=== PATIENT | male | born 1960 | race Caucasian/White ===

== ENCOUNTER 2018-09-30 08:12 | Outpatient (RCR) | payer BC | END 2018-11-07 | disposition home or self-care (01) | LOC: CR 08:12 | PROVIDERS: ATTEND Internal Medicine Critical Care Medicine | DX: Z48.812 Encounter for surgical aftercare following surgery on the circulatory system (principal); Z95.5 Presence of coronary angioplasty implant and graft | CPT/HCPCS: 93798 ==

== ENCOUNTER → 2022-05-31 | Outpatient (RCR) | payer BC | END | disposition home or self-care (01) | LOC: EDSTATUS 04-10 08:28 → CR3 04-12 08:53 | PROVIDERS: ATTEND Internal Medicine Critical Care Medicine | DX: Z29.8 Encounter for other specified prophylactic measures (principal) ==

== ENCOUNTER 2022-07-28 06:11 | Outpatient (RCR) | payer BC, OTHER | END 2022-07-31 | disposition home or self-care (01) | LOC: CR3 06:11 | PROVIDERS: ATTEND Internal Medicine Critical Care Medicine | DX: Z01.818 Encounter for other preprocedural examination (principal) ==

== ENCOUNTER 2022-09-27 06:15 | Outpatient (RCR) | payer OTHER | END 2022-09-28 | disposition home or self-care (01) | LOC: CR3 06:15 | PROVIDERS: ATTEND Internal Medicine Critical Care Medicine | DX: Z29.8 Encounter for other specified prophylactic measures (principal) ==

== ENCOUNTER 2022-10-09 06:35 | Outpatient (RCR) | payer OTHER | END 2022-11-28 | disposition home or self-care (01) | LOC: CR3 06:35 | PROVIDERS: ATTEND Internal Medicine Critical Care Medicine | DX: Z29.8 Encounter for other specified prophylactic measures (principal) ==